=== PATIENT | female | born 1935 | race Caucasian/White ===

== ENCOUNTER 2020-10-08 16:58 | Emergency (ER) | payer MEDICARE ==
[2020-10-08] MEDS ORDERED: Sodium Chloride 0.9% 500 ML 500 ML IV ONE ×2 (17:31→17:37)
[2020-10-08 17:43] LABS: Absolute Neutrophil Ct (ANC) 5.43 (1.4-6.9); BASOPHIL % 0.3 % (0.0-0.4); Basophil (Absolute #) 0.03 (0-0.4); Eosinophil % 3.1 % (0.00-5.0); Eosinophil (Absolute #) 0.27 (0-0.5); Hematocrit 47.1 % (35-47); Hemoglobin 14.4 gm/dl (12.0-16.0); Lymphocyte (Absolute #) 2.24 (1.0-4.6); Lymphocytes % 25.6 % (24.0-44.0); Mean Cell Volume 93.3 fl (78-100); Mean Corpuscular Hemoglobin 28.5 pg (26-32); Mean Corpuscular Hgb Concent. 30.6 g/dl (32-36); Mean Platelet Volume 11.5 fl (7.5-11.0); Monocyte (Absolute #) 0.79 (0.0-1.3); Platelet Count 171 K/mm3 (150-450); Red Blood Count 5.05 M/mm3 (4.1-5.4); Red Cell Distribution Width 13.7 % (11.5-14.0); White Blood Count 8.8 K/mm3 (4.0-10.5)
--- NOTE | 2020-10-08 17:43 | ERPHSYRPT ---
- History of Present Illness Time Seen by Provider: 10/08/20 17:05 Source: patient, family Exam Limitations: no limitations Patient Subjective Stated Complaint: Pt states "I just do not feel good. I am dizzy, weak and I feel like crap." Triage Nursing Assessment: Pt presented alert and oriented X 3, skin pwd Pt ambulates with a slow gait, able to speak in clear full sentences pt in no apparent respiratory distress. Physician History: 85 years old female with history of anxiety depression, hypertension presented in the ER with chief complaint of generalized weakness fatigue tiredness and also feeling dizzy and lightheaded with standing up. This has been going on for 3 to 4 days with progressive worsening. She denies any chest pain palpitations or shortness of breath. No fever or chills reported. Denies any vomiting or diarrhea. Denies any focal numbness tingling or weakness but weakness all over. Feels drained with no energy to do her routine activities. Timing/Duration: week(s) (2), intermittent, gradual onset, worse Severity: moderate Associated Symptoms: loss of appetite, malaise, weakness, No nausea, No vomiting, No abdominal pain, No shortness of breath, No heartburn, No cough, No chills, No chest pain, No fever, No rash, No syncope Allergies/Adverse Reactions: Sulfa (Sulfonamide Antibiotics) Allergy (Severe, Verified 10/08/20 17:23) unknown pt could not remember what happens Home Medications: Amitriptyline HCl 10 mg [Elavil 10 mg] 10 mg PO DAILY 10/08/20 [History] Ergocalciferol (Vitamin D2) [Vitamin D] 50,000 unit PO WEEKLY 10/08/20 [History] Lisinopril 5 mg [Zestril 5 MG] 5 mg PO DAILY 10/08/20 [History] Metoprolol Tartrate 25 mg [Lopressor 25MG Tab] 25 mg PO STAT 10/08/20 [History] Sertraline HCl [Zoloft] 25 mg PO 10/08/20 [History] Hx Tetanus, Diphtheria Vaccination/Date Given: No Hx Influenza Vaccination/Date Given: No Hx Pneumococcal Vaccination/Date Given: No Immunizations Up to Date: Yes Travel Risk - International Travel Have you traveled outside of the country in past 3 weeks: No - Coronavirus Screening Are you exhibiting any of the following symptoms?: No Close contact with a COVID-19 positive Pt in past 14-21 Days: No - Vaccine Status Have you recieved a Covid-19 vaccination: No - Review of Systems Constitutional: Fatigue, Weakness Eyes: No Symptoms Ears, Nose, & Throat: No Symptoms Respiratory: No Symptoms Cardiac: No Symptoms Abdominal/Gastrointestinal: No Symptoms Genitourinary Symptoms: No Symptoms Musculoskeletal: Myalgias Skin: No Symptoms Neurological: No Symptoms Psychological: No Symptoms Endocrine: No Symptoms Hematologic/Lymphatic: No Symptoms Immunological/Allergic: No Symptoms - Past Medical History Pertinent Past Medical History: Yes Neurological History: TIA ENT History: Macular Degeneration Cardiac History: Hypertension Respiratory History: COPD Endocrine Medical History: No Pertinent History Musculoskeletal History: Arthritis GI Medical History: GERD, Ulcer History: No Pertinent History Psycho-Social History: No Pertinent History Female Reproductive Disorders: No Pertinent History - Past Surgical History Past Surgical History: Yes Other Surgical History: appi. keri. hysterectomy - Social History Smoking Status: Current every day smoker How long have you smoked: years Exposure to second hand smoke: Yes Drug Use: none Patient Lives Alone: No - Nursing Vital Signs Nursing Vital Signs: Initial Vital Signs Temperature 98.3 F 10/08/20 17:12 Pulse Rate 68 10/08/20 17:12 Respiratory Rate 20 10/08/20 17:12 Blood Pressure 183/60 10/08/20 17:12 O2 Sat by Pulse Oximetry 98 10/08/20 17:12 Pain Scale Pain Intensity 5 - Physical Exam General Appearance: no apparent distress, alert Eye Exam: eyes nml inspection Ears, Nose, Throat Exam: normal ENT inspection, TMs normal, pharynx normal, moist mucous membranes Neck Exam: normal inspection, non-tender, supple, full range of motion Respiratory Exam: normal breath sounds, lungs clear, other (Left breast 6 x 5 cm hard to firm mass with it ordered skin around the nipple. Palpable lymph nodes in both axilla) Cardiovascular Exam: regular rate/rhythm, normal heart sounds Gastrointestinal/Abdomen Exam: soft, normal bowel sounds, No tenderness Back Exam: normal inspection, normal range of motion, No CVA tenderness Extremity Exam: normal inspection, normal range of motion, pelvis stable Neurologic Exam: alert, oriented x 3, cooperative, chief of production II-XII nml as tested, normal mood/affect, nml cerebellar function, sensation nml Skin Exam: normal color Lymphatic Exam: adenopathy, axilla node tender (L), axilla node tender (R) SpO2 Interpretation: normal SpO2: 98 O2 Delivery: Room Air - Course EKG Interpreted by Me: RATE ([id number]), Sinus Rhythm, Left [place] Deviation, LAFB, NORMAL INTERVALS, Q-wave, Non-specific ST Changes Ordered Tests: Active Orders 24 hr Category Date Time Status Human Performance Consultant STAT Care 10/08/20 17:30 Active IV Insertion STAT Care 10/08/20 17:30 Active Orthostatic Vital Signs STAT Care 10/08/20 17:30 Active CHEST 1 VIEW (PORTABLE) Stat Exams 10/08/20 17:[address] ANGIOGRAPHY NECK [CT] Stat Exams 10/08/20 19:30 Taken CTA HEAD W AND/OR WO CONTRAST [CT] Stat Exams 10/08/20 18:39 Taken HEAD WITHOUT CONTRAST [CT] Stat Exams 10/08/20 17:30 Taken CBC W DIFF Stat Lab 10/08/20 17:36 Completed CMP Stat Lab 10/08/20 17:36 Completed Lactic Acid Stat Lab 10/08/20 17:30 Completed MAGNESIUM Stat Lab 10/08/20 17:36 Completed TROPONIN Q3H Lab 10/08/20 17:36 Completed TROPONIN Q3H Lab 10/08/20 20:31 Completed UA W/RFX UR CULTURE Stat Lab 10/08/20 17:36 Completed Medication Summary Discontinued Medications Generic Name Dose Route Start Last Admin Trade Name Freq PRN Reason Stop Dose Admin Acetaminophen 650 mg 10/08/20 21:33 10/08/20 21:39 Tylenol 325 Mg PO 10/08/20 21:34 650 mg STAT STA Administration Acetaminophen Confirm 10/08/20 21:34 Tylenol 325 Mg Administered 10/08/20 21:35 Dose 650 mg .ROUTE .STK-MED ONE Hydralazine HCl Confirm 10/08/20 21:34 Apresoline 20 Mg/Ml Inj Administered 10/08/20 21:35 Dose 20 mg .ROUTE .STK-MED ONE Hydralazine HCl 10 mg 10/08/20 21:34 10/08/20 21:39 Apresoline 20 Mg/Ml Inj IV 10/08/20 21:35 10 mg STAT ONE Administration Sodium Chloride 500 mls @ 500 mls/hr 10/08/20 17:31 10/08/20 18:45 Sodium Chloride 0.9% 500 Ml IV 10/08/20 18:30 Infused .Q1H ONE Infusion Sodium Chloride Confirm 10/08/20 17:37 Sodium Chloride 0.9% 500 Ml Administered 10/08/20 17:38 Dose 500 mls @ ud IV .STK-MED ONE Lab/Rad Data: Laboratory Result Diagrams 10/08/20 17:36 10/08/20 17:36 Laboratory Results 10/08/20 10/08/20 10/08/20 Range/Units 20:31 17:36 17:36 WBC 8.8 (4.0-10.5) K/mm3 RBC 5.05 (4.1-5.4) M/mm3 Hgb 14.4 (12.0-16.0) gm/dl Hct 47.1 H (35-47) % MCV 93.3 (78-100) fl MCH 28.5 (26-32) pg MCHC 30.6 L (32-36) g/dl RDW 13.7 (11.5-14.0) % Plt Count 171 (150-450) K/mm3 MPV 11.5 H (7.5-11.0) fl Gran % 62.0 (36.0-66.0) % Eos # (Auto) 0.27 (0-0.5) Absolute Lymphs (auto) 2.24 (1.0-4.6) Absolute Monos (auto) 0.79 (0.0-1.3) Lymphocytes % 25.6 (24.0-44.0) % Monocytes % 9.0 (0.0-12.0) % Eosinophils % 3.1 (0.00-5.0) % Basophils % 0.3 (0.0-0.4) % Absolute Granulocytes 5.43 (1.4-6.9) Basophils # 0.03 (0-0.4) Sodium 141 (137-145) mmol/L Potassium 4.2 (3.5-5.1) mmol/L Chloride 103 (98-107) mmol/L Carbon Dioxide 32 H (22-30) mmol/L Anion Gap 9.8 (5-15) MEQ/L BUN 19 H (7-17) mg/dL Creatinine 0.88 (0.52-1.04) mg/dL Estimated GFR > 60.0 ML/MIN Glucose 90 (74-106) mg/dL Lactic Acid (0.4-2.0) Calcium 9.2 (8.4-10.2) mg/dL Magnesium 2.1 (1.6-2.3) mg/dL Total Bilirubin 0.50 (0.2-1.3) mg/dL AST 24 (14-36) U/L ALT 9 (0-35) U/L Alkaline Phosphatase 67 (38-126) U/L Troponin I < 0.012 (0.000-0.034) ng/mL Serum Total Protein 7.4 (6.3-8.2) g/dL Albumin 4.0 (3.5-5.0) g/dL Urine Color (YELLOW) Urine Appearance (CLEAR) Urine pH (5-6) Ur Specific [place] (1.005-1.025) Urine Protein (Negative) Urine Ketones (NEGATIVE) Urine Blood (0-5) Keron/ul Urine Nitrite (NEGATIVE) Urine Bilirubin (NEGATIVE) Urine Urobilinogen (0-1) mg/dL Ur Leukocyte Esterase (NEGATIVE) Urine WBC (Auto) (0-5) /HPF Urine RBC (Auto) (0-2) /HPF U Epithel Cells (Auto) (FEW) /HPF Urine Bacteria (Auto) (NEGATIVE) /HPF Urine Culture Reflexed (NO) Urine Glucose (NEGATIVE) mg/dL 10/08/20 10/08/20 10/08/20 Range/Units 17:36 17:36 17:30 WBC (4.0-10.5) K/mm3 RBC (4.1-5.4) M/mm3 Hgb (12.0-16.0) gm/dl Hct (35-47) % MCV (78-100) fl MCH (26-32) pg MCHC (32-36) g/dl RDW (11.5-14.0) % Plt Count (150-450) K/mm3 MPV (7.5-11.0) fl Gran % (36.0-66.0) % Eos # (Auto) (0-0.5) Absolute Lymphs (auto) (1.0-4.6) Absolute Monos (auto) (0.0-1.3) Lymphocytes % (24.0-44.0) % Monocytes % (0.0-12.0) % Eosinophils % (0.00-5.0) % Basophils % (0.0-0.4) % Absolute Granulocytes (1.4-6.9) Basophils # (0-0.4) Sodium (137-145) mmol/L Potassium (3.5-5.1) mmol/L Chloride (98-107) mmol/L Carbon Dioxide (22-30) mmol/L Anion Gap (5-15) MEQ/L BUN (7-17) mg/dL Creatinine (0.52-1.04) mg/dL Estimated GFR ML/MIN Glucose (74-106) mg/dL Lactic Acid 1.8 (0.4-2.0) Calcium (8.4-10.2) mg/dL Magnesium (1.6-2.3) mg/dL Total Bilirubin (0.2-1.3) mg/dL AST (14-36) U/L ALT (0-35) U/L Alkaline Phosphatase (38-126) U/L Troponin I < 0.012 (0.000-0.034) ng/mL Serum Total Protein (6.3-8.2) g/dL Albumin (3.5-5.0) g/dL Urine Color STRAW (YELLOW) Urine Appearance CLEAR (CLEAR) Urine pH 6.0 (5-6) Ur Specific [place] 1.005 (1.005-1.025) Urine Protein NEGATIVE (Negative) Urine Ketones NEGATIVE (NEGATIVE) Urine Blood SMALL (0-5) Keron/ul Urine Nitrite NEGATIVE (NEGATIVE) Urine Bilirubin NEGATIVE (NEGATIVE) Urine Urobilinogen NEGATIVE (0-1) mg/dL Ur Leukocyte Esterase NEGATIVE (NEGATIVE) Urine WBC (Auto) 0-2 (0-5) /HPF Urine RBC (Auto) 0-2 (0-2) /HPF U Epithel Cells (Auto) RARE (FEW) /HPF Urine Bacteria (Auto) NONE (NEGATIVE) /HPF Urine Culture Reflexed NO (NO) Urine Glucose NEGATIVE (NEGATIVE) mg/dL - Progress Progress: improved, re-examined Progress Note: 10/08/20 22:24 85 years old is evaluated for generalized weakness fatigue and getting dizzy with standing. She has a grossly nonfocal neuro exam. She is given fluid bolus, on reevaluation feeling better. 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 I have obtained CTAs which confirmed the findings of aneurysm without any rupture/bleed and did show proximal right ICA moderate to severe stenosis. Patient does have a mass in the left breast which is there for quite some time but patient has not followed up with anyone. She has enlarged lymph nodes and CTA did reveal that which is probably metastatic. Work-up otherwise is grossly negative. Patient is recommended transfer to facility with neurosurgery/neurology but she does not want to go. Patient reports her brother had brain aneurysm at the age of 73 who went for surgery and had on table and she does not want to follow-up per any kind of work-up/surgery done. Discussed with patient and sister about risk of leaving without full work-up including neuro consult/neurosurgery consult/transfer and rupture of aneurysm leading to which they understand but still does not want to do any kind of follow-up as of now. They understand the risk of . Her blood pressure was elevated but has not taken the evening dose, given hydralazine and it is improving. Still have nonfocal neuro exam. I would give her outpatient referral for neurosurgery/neurology if you wish to do so later she can call them and make an appointment. Patient does understand that if he has a ruptured aneurysm in the brain there would not be a whole lot anyone can do and wants to leave. She is counseled about strict blood pressure control. She also does not want to follow-up with surgery/hematology oncology for possible breast cancer. 10/08/20 22:31 Counseled pt/family regarding: lab results, diagnosis, need for follow-up, rad results - Departure Departure Disposition: Home Clinical Impression: Brain aneurysm, Breast mass in female, Uncontrolled hypertension Condition: Stable Critical Care Time: No Referrals: EMILY VALLEJO [NON-STAFF PHY W/O PRIVILEGES] - (Call for appointment) JERRELL PEARL MD [Primary Care Provider] - (1-2 days for reevaluation) MELIA AGUAYO MD [NON-STAFF PHY W/O PRIVILEGES] - (Call for appointment in 1 to 2 days) Instructions: Breast Cancer, Brain Aneurysm (DC), High Blood Pressure Emergencies Additional Instructions: Monitor your blood pressure regularly, keep a log and follow-up with primary care. Follow-up with primary care for breast mass and may need referral to general surgery/oncology and further work-up for that. Also follow-up with neurology/neurosurgery for brain aneurysm. Return to ER for intractable headache, numbness tingling focal weakness, confusion etc.
[2020-10-08 17:49] LABS: Appearance CLEAR (CLEAR); Bilirubin NEGATIVE (NEGATIVE); Blood SMALL Ery/ul (0-5); Epithelial Cells RARE /HPF (FEW); Glucose NEGATIVE (NEGATIVE); Ketones NEGATIVE (NEGATIVE); Leukocyte Esterase NEGATIVE (NEGATIVE); Nitrite NEGATIVE (NEGATIVE); Protein,Urine Dip NEGATIVE (Negative); RBC 0-2 /HPF (0-2); Specific Gravity 1.005 (1.005-1.025); Urobilinogen NEGATIVE mg/dL (0-1); WBC 0-2 /HPF (0-5)
[2020-10-08 17:56] LABS: ALKALINE PHOSPHATASE 67 U/L (38-126); ANION GAP 9.8 MEQ/L (5-15); BLOOD UREA NITROGEN 19 mg/dL (7-17); CHLORIDE 103 mmol/L (98-107); Calcium 9.2 mg/dL (8.4-10.2); Carbon Dioxide 32 mmol/L (22-30); Creatinine 1 0.88 mg/dL (0.52-1.04); EST GLOMERULAR FILTRATION RATE > 60.0 ML/MIN; Glucose 90 mg/dL (74-106); MAGNESIUM 2.1 mg/dL (1.6-2.3); Potassium 4.2 mmol/L (3.5-5.1); SGOT/AST 24 U/L (14-36); SGPT/ALT 9 U/L (0-35); SODIUM 141 mmol/L (137-145); Total Protein 7.4 g/dL (6.3-8.2)
[2020-10-08] MEDS ORDERED: TYLENOL 325 MG PO STA (21:33)
[2020-10-08] MEDS ORDERED: TYLENOL 325 MG ONE (21:34)
[2020-10-08] MEDS ORDERED: APRESOLINE 20 MG/ML INJ IV ONE (21:34)
[2020-10-08] MEDS ORDERED: APRESOLINE 20 MG/ML INJ ONE (21:34)
[2020-10-08 22:41] VITALS: BP 160/84; PULSE 74
[2020-10-09 00:48] VITALS: O2SAT 98
--- NOTE | 2020-10-09 09:10 | XRAY ---
Exam: CT of the head without IV contrast from 10/08/2020 CTDI: 53.92 Comparison: CT of the head without IV contrast from 06/29/2020. Indication: 85-year-old female with generalized weakness; patient has not been eating or drinking much; headache; history of TIAs in June,. Technique: Non-IV contrast axial images were obtained through the brain. Reconstructed coronal and sagittal images were created and reviewed. Findings: The ventricles are mildly prominent, as well as the cortical sulci, consistent with mild generalized atrophy. There is an anatomical variant cavum septum pellucidum/vergae, representing no change. No midline shift is seen. Within the anterior aspect of the left middle cranial fossa, I note a mildly hyperattenuated, round density which is now evident and measures about 8.8 mm in width x 8.3 mm in AP depth x 7.3 mm in height. I don't believe this is appreciably changed. This probably represents an aneurysm at the genu or proximal M2 segment of the left middle cerebral artery. Atherosclerotic vascular calcification is seen within the distal vertebral arteries and carotid siphons. There are patchy areas of hypodensity within the periventricular and subcortical white matter, likely due to chronic microvascular disease. The appearance of the posterior fossa is similar with a subtle low-attenuation density within the inferior right cerebellar hemisphere which could relate to an old focal infarct, no change. No new significant low-attenuation density is seen. The calvarium of the skull appears intact without fracture. The mastoid air cells are clear without effusion. There are mildly rounded densities within the inferior aspect of both maxillary sinuses, larger on the right than left, which may relate to retention cysts or mucosal thickening. No air-fluid levels are seen. Impression: 1. No acute intracranial bleed is seen. 2. Moderate generalized cerebral atrophy and patchy bilateral periventricular and subcortical white matter changes consistent with chronic small vessel ischemic disease. This is essentially unchanged. 3. 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 This does not appear to represent a significant change from 06/29/2020. This could be further characterized with CTA of the head.
--- NOTE | 2020-10-09 09:53 | XRAY ---
This CTA of the neck with IV contrast was interpreted at the same time as the CTA of the head with IV contrast. See that report.
--- NOTE | 2020-10-09 09:56 | XRAY ---
Exam: CTA OF THE HEAD WITH IV CONTRAST FROM 10/08/2020. CTDI: 18.11 mGy Comparison: CT of the head without IV contrast from 10/08/2020. Indication: 85-year-old female with abnormal findings on recent CT of the head without IV contrast (same day). Technique: Computed tomography angiography of the head with contrast was performed with the exam focused on the arteries. Three-D reconstructed images and MIP images were created by the ep technologist. 80 ML's of Isovue 370 IV contrast was given for this exam. Findings: ANTERIOR CIRCULATION: Right internal carotid artery: Unremarkable. Intracranial segment is patent without significant stenosis. There is no aneurysm. Right middle cerebral artery: Unremarkable. There is no occlusion or significant stenosis. No aneurysm is seen. Right anterior cerebral artery: Unremarkable. There is no occlusion or significant stenosis. No aneurysm is seen. Left internal carotid artery: Unremarkable. Intracranial segment is patent with no significant stenosis. No aneurysm is seen. Left middle cerebral artery: 8.8 mm in width x 8.3 mm in AP depth x 8.0 mm in height aneurysm, proximal M2 segment of the left middle cerebral artery. Left anterior cerebral artery: Unremarkable. There is no occlusion or significant stenosis. No aneurysm is seen. POSTERIOR CIRCULATION: Right vertebral artery: Unremarkable. No occlusion or significant stenosis is seen. No aneurysm is seen. Left vertebral artery: Unremarkable. No occlusion or significant stenosis is seen. No aneurysm is seen. Basilar artery: Unremarkable. No occlusion or significant stenosis is seen. No aneurysm is seen. Right posterior cerebral artery: Unremarkable. No occlusion or significant stenosis is seen. No aneurysm is seen. Left posterior cerebral artery: Unremarkable. No occlusion or significant stenosis is seen. No aneurysm is seen. Within the remainder of the brain, no definite mass, mass effect, or midline shift is seen. There is no ventriculomegaly. Bilateral mucous retention cysts are seen within the maxillary sinuses, larger on the right than left. There is no evidence of skull fracture. Impression: 1. 8.8 mm in width x 8.3 mm in AP depth x 8.0 mm in height aneurysm of the proximal M2 segment of the left middle cerebral artery. 2. No other large vessel stenosis or occlusion is seen within the brain. Exam: CT ANGIOGRAPHY OF THE NECK WITH IV CONTRAST. CTDI: 18.11 mGy Comparison: CT of the head without IV contrast from earlier today on 10/08/2020. Indication: 85-year-old female with abnormal findings on earlier CT of the head without IV contrast from same day. Technique: Computed tomography angiography of the neck with IV contrast was performed. Three-D reconstructed images and MIP images were created by the ep technologist. 80 ML's of Isovue 370 IV contrast was employed for this exam. Findings: Moderate scattered atherosclerotic vascular calcification is seen within the visualized portion of the thoracic aorta and its major branches. Right common carotid artery: No stenosis. No dissection or occlusion. Right internal carotid artery: Short segment area of moderate to severe stenosis of the proximal right ICA. Right external carotid artery: No occlusion or stenosis of the origin. Left common carotid artery: No stenosis. No dissection or occlusion is seen. Left internal carotid artery: Mild to moderate stenosis of the proximal left ICA. Left external carotid artery: No occlusion or stenosis of the origin. Right vertebral artery: No stenosis is seen. No dissection or occlusion is seen. Left vertebral artery: No stenosis is seen. No dissection or occlusion is seen. Thyroid: There is a large oval, somewhat lobular shaped 3.1 cm x 1.9 cm low-attenuation mass occupying much of the upper and mid aspect of the right thyroid lobe as well as a portion of the isthmus. See axial image #44. 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 Consider further evaluation with a thyroid ultrasound. I also note of bilateral subareolar breast masses, larger on the left than right, with probable abnormal left axillary lymphadenopathy. Left-sided coronary artery vascular calcification is seen. The lungs reveal an indeterminate 1 cm left upper lobe soft tissue mass. See axial image #21. There are large pretracheal and left suprahilar soft tissue masses. The bones reveal no acute fracture. Moderate degenerative disc disease is seen at C5-C6 and C6-C7. Impression: 1. Short segment moderate to severe stenosis of the proximal right ICA. I believe there is mild to moderate stenosis of the proximal left ICA. 2. Large pretracheal and left suprahilar soft tissue masses concerning for metastatic lymphadenopathy. Bilateral breast masses and left axillary lymphadenopathy concerning for neoplasm. Further workup is recommended. 3. Large thyroid mass occupying much of the right lobe and isthmus. Consider further evaluation with a thyroid ultrasound. REFERENCES: NASCET CRITERIA. The degrees of internal carotid artery stenosis is based on NASCET criteria. Normal is no stenosis. Mild is less than 50% stenosis. Moderate is 50% to 69% stenosis. Severe is 70% to 99% stenosis. Total occlusion is no detectable patent lumen.
--- NOTE | 2020-10-09 22:08 | XRAY ---
Exam: AP portable chest film from 10/08/2020. Comparison: None. Indication: Generalized weakness; history of COPD; cough. Findings: The film was obtained in a mildly lordotic projection. There appears to be mild cardiomegaly. Calcification of the aortic arch and mild tortuosity of the descending thoracic aorta are seen. The remainder of the jerry and mediastinal structures appears unremarkable. The lungs are well inflated. No air space infiltrates, vascular congestion, pneumothorax, or pleural fluid is seen. Minimal eventration is seen along the hemidiaphragmatic surfaces. Bone demineralization and minimal mid thoracic dextroscoliosis is seen. There also appears to be a mild rotary convexity of the upper lumbar spine toward the left. Some degenerative changes are seen within the spine. Impression: 1. Mild cardiomegaly without evidence of CHF or pulmonary edema. 2. No pneumonic infiltrates or other active lung disease is seen.
== END 2020-10-08 22:41 | disposition home or self-care (01) ==
LOC: ED 16:58
DX: I67.1 Cerebral aneurysm, nonruptured (principal); N63.0 Unspecified lump in unspecified breast; I10 Essential (primary) hypertension; F41.9 Anxiety disorder, unspecified; R42 Dizziness and giddiness; R53.1 Weakness; Z79.899 Other long term (current) drug therapy; Z86.73 Personal history of transient ischemic attack (TIA), and cerebral infarction without residual deficits; H35.30 Unspecified macular degeneration; J44.9 Chronic obstructive pulmonary disease, unspecified; F17.200 Nicotine dependence, unspecified, uncomplicated
CPT/HCPCS: 36000; 36415; 70450; 70496; 70498; 71045; 80053; 81001; 83605; 83735; 84484; 85025; 93041; 96360; 96374; 99284; J0360; A9270-GY